=== PATIENT | male | born 1970 ===

== ENCOUNTER 2021-04-05 11:56 | Emergency (ER) | payer OTHER ==
[~2021-04-05] VITALS: Ht 172.7 cm; Wt 74.8 kg
[2021-04-05] MEDS ORDERED: ENBRACE HR SOF1 EACH (12:02)
[2021-04-05] MEDS ORDERED: INTESTINEX680 M1 PO (14:56)
[2021-04-05] MEDS ORDERED: CELEBREX100 MG PO (14:56)
[2021-04-05] MEDS ORDERED: AMOX-CLAV 875-1 EAC1 PO (14:56)
[2021-04-05] MEDS ORDERED: PERCOCET 5-3251 EACH PO (14:56)
== END 2021-04-05 15:02 | disposition home or self-care (01) ==
LOC: ER
DX: S61.422A Laceration with foreign body of left hand, initial encounter (principal); W45.8XXA Other foreign body or object entering through skin, initial encounter; Y93.89 Activity, other specified; Y92.098 Other place in other non-institutional residence as the place of occurrence of the external cause; Y99.8 Other external cause status